=== PATIENT | female | born 1995 | race Caucasian/White ===

== ENCOUNTER 2016-12-08 21:53 | Emergency (ER) | payer BC ==
[~2016-12-08] VITALS: Ht 152.4 cm; Wt 59.0 kg
[2016-12-08 22:02] VITALS: BP 140/90; PULSE 80; RESP 18; TEMP 97.2; O2SAT 98
--- NOTE | 2016-12-08 22:06 | NUR ---
Patient to ER bed 8 to gown for evaluation. Side rails up. Report given to Natalia VINES.
--- NOTE | 2016-12-08 22:15 | NUR ---
pt in bed 8 with c/o 'allergic rxn" , no hives observed. Dr Cochran aware.
--- NOTE | 2016-12-08 22:29 | NUR ---
ER at bedside examining patient.
[2016-12-08] MEDS ORDERED: DIPHENHYDRAMINE HCL 50 MG CAPSULE PO ONE (22:45)
--- NOTE | 2016-12-08 22:47 | NUR ---
Patient given verbal discharge instructions and verbalizes understanding. ER MD discussed with patient the results and treatment provided. Given copies of tests performed in ER. Patient in stable condition. ID arm band removed. Rx of benadryl given. Patient educated on pain management and to follow up with PMD. Pain Scale 0/10. Opportunity for questions provided and answered. Pt left without d/c instructions.
[2016-12-08 22:55] VITALS: BP 132/78; PULSE 78; RESP 18; TEMP 97.2; O2SAT 98
== END 2016-12-08 22:47 | disposition home or self-care (01) ==
LOC: SED 21:53
DX: T78.1XXA Other adverse food reactions, not elsewhere classified, initial encounter (principal); R11.0 Nausea; R51 Headache; R22.0 Localized swelling, mass and lump, head; F41.9 Anxiety disorder, unspecified; X58.XXXA Exposure to other specified factors, initial encounter
CPT/HCPCS: 99282

== ENCOUNTER 2017-07-03 18:21 | Emergency (ER) | payer BC ==
[~2017-07-03] VITALS: Ht 152.4 cm; Wt 63.5 kg
[2017-07-03 18:45] VITALS: BP_SYST 146
--- NOTE | 2017-07-03 19:00 | NUR ---
TANMAY schuster LASER TECHNICIAN at bedside examining patient.
[2017-07-03] MEDS ORDERED: NACL 0.9% 1,000 ML IV ONE (19:15)
[2017-07-03] MEDS ORDERED: MORPHINE 4 MG/ML INJ. SYRINGE IVP ONE (19:15)
[2017-07-03] MEDS ORDERED: DIPHENHYDRAMINE INJ 50 MG/ML VIAL IVP ONE (19:15)
--- NOTE | 2017-07-03 19:25 | NUR ---
pt laying in bed. with mom at bedside. Pt awake alert oriented x 4. Pt stated that thew up back to back four times. IV was initiatd by claudia VINES. on the left FA 22g. Pt denied SOB. will continue to monitor
[2017-07-03 19:33] LABS: BASOPHILS # (AUTO) 0.2 K/uL (0.0-0.2); EOSINOPHILS # (AUTO) 0.1 K/uL (0.0-0.4); EOSINOPHILS % (AUTO) 0.6 % (0.0-4.0); HEMATOCRIT 38.4 % (36-48); HEMOGLOBIN 12.9 g/dL (12.0-16.0); LYMPHOCYTES # (AUTO) 2.1 K/uL (1.0-5.5); LYMPHOCYTES % (AUTO) 12.2 % (20.5-51.5); MEAN CORPUSCULAR HEMOGLOBIN 30 pg (27-31); MEAN CORPUSCULAR HGB CONC 34 % (32-36); MEAN CORPUSCULAR VOLUME 89 fL (79.0-98.0); MONOCYTES # (AUTO) 0.8 K/uL (0.0-1.0); MONOCYTES % (AUTO) 4.7 % (1.7-9.3); NEUTROPHILS # (AUTO) 13.9 K/uL (1.8-7.7); NEUTROPHILS % (AUTO) 81.5 % (40.0-70.0); PLATELET COUNT (AUTO) 232 K/uL (130-430); RED CELL DISTRIBUTION WIDTH 12.4 % (9.0-15.0); WHITE BLOOD COUNT (AUTO) 17.1 K/uL (4.8-10.8)
[2017-07-03 19:37] LABS: BILIRUBIN,URINE NEGATIVE (NEGATIVE); BLOOD, URINE NEGATIVE (NEGATIVE); CLARITY/URINE CLOUDY (CLEAR); COLOR,URINE YELLOW (YELLOW); GLUCOSE,URINE NEGATIVE (NEGATIVE); KETONES,URINE TRACE (NEGATIVE); LEUKOCYTE ESTERASE ,URINE NEGATIVE (NEGATIVE); NITRITE, URINE NEGATIVE (NEGATIVE); PROTEIN URINE NEGATIVE (NEGATIVE); UROBILINOGEN,URINE 0.2 (0.2-1.0)
[2017-07-03 20:13] LABS: BACTERIA,URINE MODERATE /HPF (None Seen); RBC,URINE NONE SEEN /HPF (0-3); WBC,URINE 0-3 /HPF (0-3)
[2017-07-03 20:14] LABS: COARSE GRANULAR CASTS,URINE 0-10 /LPF (None Seen); MUCUS,URINE None Seen /LPF (None Seen); URINE AMORPHOUS PHOSPHATES 3+ /HPF (None Seen)
[2017-07-03] MEDS ORDERED: cefTRIAXone 2 GM VIAL ONE (20:25)
[2017-07-03] MEDS ORDERED: KETOROLAC TROMETHAMINE 30 MG VIAL IVP ONE (20:30)
--- NOTE | 2017-07-03 20:30 | NUR ---
ER jarrell Gayle SOIL CHEMIST spoke to patient and mother reagrding plan of are. verbalized understanding.
[2017-07-03 20:45] LABS: CALCIUM 8.9 mg/dL (8.4-11.0); CREATININE 0.54 mg/dL (0.55-1.30); POTASSIUM 3.6 mmol/L (3.5-5.1)
[2017-07-03 20:49] LABS: ALBUMIN 3.7 g/dL (3.4-4.8); TOTAL BILIRUBIN 0.3 mg/dL (0.0-1.0)
[2017-07-03] MEDS ORDERED: MAG HYDROX/AL HYDROX/SIMETH 30 ML, LIDOCAINE VISCOUS 2% 15ML (PO) 10 ML, BELLADONNA ALK... PO ONE ×3 (21:15)
[2017-07-03] MEDS ORDERED: HYDROmorphone 1 MG INJ. 1 MG/ML AMPUL IVP ONE (21:15)
[2017-07-03 22:05] VITALS: BP_SYST 124
--- NOTE | 2017-07-03 22:05 | NUR ---
Patient and her mother given written and verbal discharge instructions and verbalizes understanding. ER MD discussed with patient the results and treatment provided. Patient in stable condition. ID arm band removed. IV catheter removed intact and dressing applied, no active bleeding. Rx of bentyl and omeprazole given. Patient educated on pain management and to follow up with PMD. Pain Scale 0/10. Opportunity for questions provided and answered.
== END 2017-07-03 22:05 | disposition home or self-care (01) ==
LOC: SED 18:21
DX: R10.13 Epigastric pain (principal); R11.2 Nausea with vomiting, unspecified; D72.829 Elevated white blood cell count, unspecified; R03.0 Elevated blood-pressure reading, without diagnosis of hypertension; F41.9 Anxiety disorder, unspecified
CPT/HCPCS: 36415; 76700; 80053; 81000; 81025; 83690; 85025; 87040; 87086; 96361; 96365; 96375; 99285; J0696; J1170; J1200; J2001; J2270; J7030; J7060

== ENCOUNTER 2017-11-19 12:58 | Inpatient (IN) | payer BC ==
[~2017-11-19] VITALS: Ht 152.4 cm; Wt 61.7 kg
[2017-11-19 12:58] VITALS: BP_SYST 143
--- NOTE | 2017-11-19 12:58 | NUR ---
BROUGHT BACK TO BED #4 VIA WHEELCHAIR, PLACED IN BED AND TRIAGED. REPORT GIVEN TO VIKAS
[2017-11-19 13:00] VITALS: BP_SYST 117
[2017-11-19 14:12] LABS: BASOPHILS # (AUTO) 0.1 K/uL (0.0-0.2); BASOPHILS % (AUTO) 0.4 % (0.0-2.0); EOSINOPHILS % (AUTO) 0.1 % (0.0-4.0); HEMOGLOBIN 13.7 g/dL (12.0-16.0); LYMPHOCYTES # (AUTO) 1.7 K/uL (1.0-5.5); LYMPHOCYTES % (AUTO) 11.5 % (20.5-51.5); MEAN CORPUSCULAR HEMOGLOBIN 30 pg (27-31); MEAN CORPUSCULAR HGB CONC 33 % (32-36); MEAN CORPUSCULAR VOLUME 89 fL (79.0-98.0); MONOCYTES # (AUTO) 0.5 K/uL (0.0-1.0); MONOCYTES % (AUTO) 3.4 % (1.7-9.3); NEUTROPHILS # (AUTO) 12.1 K/uL (1.8-7.7); NEUTROPHILS % (AUTO) 84.6 % (40.0-70.0); PLATELET COUNT (AUTO) 222 K/uL (130-430); RED CELL DISTRIBUTION WIDTH 12.2 % (9.0-15.0); WHITE BLOOD COUNT (AUTO) 14.4 K/uL (4.8-10.8)
[2017-11-19 14:31] LABS: CALCIUM 9.7 mg/dL (8.4-11.0)
[2017-11-19 14:32] LABS: CREATININE 0.57 mg/dL (0.55-1.30)
[2017-11-19 14:33] LABS: PROTHROMBIN TIME 10.4 SECS (9.5-12.5)
[2017-11-19 14:39] LABS: TOTAL BILIRUBIN 0.5 mg/dL (0.0-1.0)
[2017-11-19 14:40] LABS: ALBUMIN 4.6 g/dL (3.4-4.8)
--- NOTE | 2017-11-19 14:53 | NUR ---
Pt placed in bed 8 to gown for examination.
--- NOTE | 2017-11-19 14:53 | NUR ---
ER HONG Gayle at bedside examining patient.
--- NOTE | 2017-11-19 14:55 | NUR ---
Pt complains of having abdominal pain to lower right quadrant that radiates across lower abdomen and to lower back. Pt states she had sudden onset of pain at 5am this morning. Pt states any movement would cause pain. Pt reports she had vomited this morning and had a fever. Pt AAO x 4 and ambulatory. No other injuries/complaints per patient or noted.
[2017-11-19 15:20] LABS: BILIRUBIN,URINE NEGATIVE (NEGATIVE); CLARITY/URINE CLEAR (CLEAR); GLUCOSE,URINE NEGATIVE (NEGATIVE); KETONES,URINE NEGATIVE (NEGATIVE); LEUKOCYTE ESTERASE ,URINE NEGATIVE (NEGATIVE); NITRITE, URINE NEGATIVE (NEGATIVE); PROTEIN URINE NEGATIVE (NEGATIVE); UROBILINOGEN,URINE 0.2 (0.2-1.0)
[2017-11-19 15:38] LABS: BLOOD, URINE TRACE (NEGATIVE); COLOR,URINE STRAW (YELLOW)
[2017-11-19 15:42] LABS: BACTERIA,URINE FEW /HPF (None Seen); MUCUS,URINE None Seen /LPF (None Seen); RBC,URINE 0-3 /HPF (0-3); WBC,URINE NONE SEEN /HPF (0-3)
[2017-11-19] MEDS ORDERED: ONDANSETRON HCL 4 MG/2 ML VIAL IVP ONE (15:45)
[2017-11-19] MEDS ORDERED: cefTRIAXone 1 GM in D5W 50 ML IV ONE (15:45)
[2017-11-19] MEDS ORDERED: cefTRIAXone 1 GM VIAL ONE (15:54)
--- NOTE | 2017-11-19 15:59 | NUR ---
# 22 gauge angiocath placed to left forearm. Use of asceptic technique. Opsite placed over site. Blood return noted. Blood for lab drawn from site. Flushed with 10 cc of normal saline. No evidence of infiltration noted. Patient tolerated well.
--- NOTE | 2017-11-19 16:10 | NUR ---
Patient ambulated to radiology, accompanied by clinical lab technologist.
--- NOTE | 2017-11-19 16:16 | NUR ---
Pt returned from radiology in stable condition.
[2017-11-19] MEDS ORDERED: ACETAMINOPHEN 325 MG TABLET PO ONE (16:30)
--- NOTE | 2017-11-19 16:55 | NUR ---
ER Dr. Shahid at bedside explaining results to patient.
--- NOTE | 2017-11-19 17:02 | NUR ---
Medication was given, pt tolerated well. No adverse reaction, will continue to monitor.
--- NOTE | 2017-11-19 17:14 | NUR ---
Attempted to gather pt's list of medications for med rec but pt unable to remember names of meds nor does she have a list of them. Pt states she is taking an antibiotic for uti.
[2017-11-19] MEDS ORDERED: ACETAMINOPHEN/CODEINE 300 MG-30 MG TABLET PO PRN (18:00)
[2017-11-19] MEDS ORDERED: MORPHINE 4 MG/ML INJ. SYRINGE IVP PRN (18:00)
[2017-11-19] MEDS ORDERED: D5LR 500 ML IV ONE (18:00)
--- NOTE | 2017-11-19 18:14 | NUR ---
Patient will be admitted to care of Dr. Carlson. Admitted to Med Surg unit. Will go to room 124 B. Belongings list completed. Summary report printed. Report will be given at bedside.
--- NOTE | 2017-11-19 18:15 | NUR ---
ADMISSION NOTE Received patient from ER via henri, received report from GRACIE VINES. Patient admitted with diagnosis of ABDOMINAL PAIN/APPENDICITIS. Patient oriented to hospital routine, call light, toileting and safety-patient verbalized understanding.
[2017-11-19 18:23] VITALS: BP_SYST 114
--- NOTE | 2017-11-19 18:45 | NUR ---
Yusef Finn Dr[address] Dr., Atar, dialed [phone], s/w Miko. Addendum: 11/19/17 at 2304 by Marilyn López [facility] [place] I misspelled the name of the doctor, it should be Clotilde Bird.
[2017-11-19] MEDS ORDERED: D5LR 1,000 ML IV SCH (19:15)
[2017-11-19] MEDS ORDERED: ALBUTEROL SULFATE 0.083% 2.5 MG/3 ML VIAL.NEB INH PRN (19:30)
[2017-11-19] MEDS ORDERED: MORPHINE 2 MG/ML INJ. SYRINGE IVP PRN (19:30)
[2017-11-19] MEDS ORDERED: ACETAMINOPHEN 325 MG TABLET PO PRN (19:30)
[2017-11-19] MEDS ORDERED: ONDANSETRON HCL 4 MG/2 ML VIAL IVP PRN (19:30)
--- NOTE | 2017-11-19 19:45 | NUR ---
ROUNDS PATIENT IN BED, WATCHING TV, VITALS STABLE, DENIES ANY PAIN AND DISCOMFORT AT THIS TIME. ASSESSMENT DONE AND DOCUMENTED. SEE FLOWSHEET. NEEDS ATTENDED TO. SAFETY AND FALL PRECAUTION MEASURES IN PLACED. BED IN LOW AND LOCKED POSITION. CALL LIGHT PLACED WITHIN REACH.
[2017-11-19 20:00] VITALS: BP_SYST 123
[2017-11-19 20:24] VITALS: BP_SYST 114
[2017-11-19] MEDS ORDERED: PIPERACILLIN/TAZOBACTAM 3.375 GM/VIAL (ZOSYN) IV ONE (21:10)
[2017-11-19] MEDS: PIPERACILLIN/TAZO 3.375/DEX-IS 50 ML IV SCH (21:30)
[2017-11-20 00:15] VITALS: BP_SYST 107
--- NOTE | 2017-11-20 00:15 | NUR ---
PATIENT RESTING: Patient resting quietly. No acute distress noted. Vital signs within normal range.
--- NOTE | 2017-11-20 02:15 | NUR ---
ROUNDS PATIENT ASLEEP, VITALS STABLE, NO SIGNS OF ANY PAIN AND DISCOMFORT NOTED. WILL CONTINUE TO MONITOR
--- NOTE | 2017-11-20 04:00 | NUR ---
PATIENT RESTING: Patient resting quietly. No acute distress noted. Vital signs within normal range.
[2017-11-20] MEDS: PIPERACILLIN/TAZO 3.375/DEX-IS 50 ML IV SCH ×3 (05:12→17:27)
[2017-11-20] MEDS: NACL 0.9% 1,000 ML IV SCH ×4 (05:13→19:16)
[2017-11-20 06:44] LABS: BASOPHILS % (AUTO) 0.4 % (0.0-2.0); EOSINOPHILS # (AUTO) 0.1 K/uL (0.0-0.4); EOSINOPHILS % (AUTO) 1.6 % (0.0-4.0); HEMATOCRIT 37.4 % (36-48); HEMOGLOBIN 12.3 g/dL (12.0-16.0); LYMPHOCYTES # (AUTO) 2.2 K/uL (1.0-5.5); LYMPHOCYTES % (AUTO) 28.9 % (20.5-51.5); MEAN CORPUSCULAR HEMOGLOBIN 30 pg (27-31); MEAN CORPUSCULAR HGB CONC 33 % (32-36); MEAN CORPUSCULAR VOLUME 91 fL (79.0-98.0); MONOCYTES # (AUTO) 0.5 K/uL (0.0-1.0); MONOCYTES % (AUTO) 7.1 % (1.7-9.3); NEUTROPHILS # (AUTO) 4.7 K/uL (1.8-7.7); PLATELET COUNT (AUTO) 185 K/uL (130-430); RED CELL DISTRIBUTION WIDTH 12.5 % (9.0-15.0); WHITE BLOOD COUNT (AUTO) 7.5 K/uL (4.8-10.8)
--- NOTE | 2017-11-20 06:46 | NUR ---
CLOSING NOTES PATIENT AWAKE, VITALS STABLE, DENIES ANY PAIN AND THIS TIME. ALL NEEDS ATTENDED TO. SAFETY MEASURES MAINTAINED. BED IN LOW AND LOCKED POSITION. CALL LIGHT PLACED WITHIN REACH.
[2017-11-20 06:55] LABS: ALBUMIN 3.7 g/dL (3.4-4.8); CALCIUM 9.1 mg/dL (8.4-11.0); CREATININE 0.58 mg/dL (0.55-1.30); POTASSIUM 3.6 mmol/L (3.5-5.1); TOTAL BILIRUBIN 0.5 mg/dL (0.0-1.0)
[2017-11-20 08:00] VITALS: BP_SYST 122
--- NOTE | 2017-11-20 08:00 | NUR ---
INITIAL NOTE RECEIVED REPORT AND PATIENT FROM PROCESS IMPROVEMENT ENGINEER NURSE. PATIENT IN BED WITH BOYFRIEND AT BEDSIDE. PATIENT IS SLEEPING, RESPONDS EASILY TO STIMULI AND VOICE. NO DISTRESS NOTED, DENIES ANY PAIN AT THIS TIME. CALL LIGHT ON HAND, WILL CONTINUE TO MONITOR.
--- NOTE | 2017-11-20 08:47 | NUR ---
DR. SALGADO AT BEDSIDE DR. SALGADO MADE ROUNDS AND TALKED TO THE PATIENT.
--- NOTE | 2017-11-20 09:05 | NUR ---
DR. KENT AT BEDSIDE DR. KENT MADE ROUNDS AND TALKED TO THE PATIENT, UPDATE ON CARE WAS GIVEN, NEW ORDER OF US TO THE ABDOMEN/PELVIS WAS ORDERED. PATIENT AND BOYFRIEND ARE AWARE.
--- NOTE | 2017-11-20 09:35 | NUR ---
EXPERIMENTAL OUTBOARD MOTORS MECHANIC FOR US PATIENT IS EXPERIMENTAL OUTBOARD MOTORS MECHANIC FOR US OF ABDOMEN/PELVIS VIA WHEEL CHAIR. PATIENT IS AWAKE, ALERT, VS STABLE.
--- NOTE | 2017-11-20 10:28 | NUR ---
CAME BACK FROM US PATIENT CAME BACK FROM US OF THE ABDOMEN/PELVIS. PATIENT DENIES ANY PAIN AT THIS TIME.
--- NOTE | 2017-11-20 11:55 | NUR ---
CALLED DR. KENT CALLED AND TALKED TO DR. KENT REGARDING US OF THE ABDOMEN/PELVIS RESULT. MD CLEARED THE PATIENT FOR DISCHARGE, FOLLOW UP IN 1WEEK, MAY ADVANCE DIET TO REGULAR. WILL NOTIFY PATIENT AND FAMILY.
[2017-11-20 12:00] VITALS: BP_SYST 103
--- NOTE | 2017-11-20 13:27 | NUR ---
Consult called: for Gunner Zayas, regarding abdominal pain, ordered by Dr. Garvey, spoke with Alyssa.
--- NOTE | 2017-11-20 13:28 | NUR ---
Surgery consult called: nurse speaking on phone with Dr. Ventura.
[2017-11-20] MEDS: ONDANSETRON HCL 4 MG/2 ML VIAL IVP PRN ×2 (13:39→19:48)
--- NOTE | 2017-11-20 13:39 | NUR ---
NAUSEA PATIENT COMPLAINS OF NAUSEA AND MILD ABDOMINAL PAIN WITH INTENSITY OF 3, PRN NAUSEA AND VOMITING AND PAIN MEDICATION GIVEN. WILL CONTINUE TO MONITOR.
--- NOTE | 2017-11-20 14:38 | NUR ---
Page: Called Dr. Wilson office to inform them that Dr. Garvey wants patient seen stat.
--- NOTE | 2017-11-20 15:25 | NUR ---
DR OLIVERA PAGED FOR 3RD TIME PER DR JASSO REQUEST FOR URGENT CONSULT, SPOKE WITH CANT HOOKER STATING MD WAS AWARE AND WOULD BE COMING IN TO SEE PATIENT SOON HE WAS DONE WITH THE PATIENTS IN HIS OFFICE.
--- NOTE | 2017-11-20 16:05 | NUR ---
ROUNDS PATIENT IN BED WITH FAMILY AT BEDSIDE. PATIENT SLEEPING, RESPONDS EASILY TO STIMULI OR VOICE. DENIES ANY PAIN OR NAUSEA OR VOMITING AT THIS TIME. VS STABLE. CALL LIGHT ON HAND WILL CONTINUE TO MONITOR.
[2017-11-20 16:30] VITALS: BP_SYST 95
--- NOTE | 2017-11-20 17:35 | NUR ---
DR. SALGADO AT BEDSIDE DR. SALGADO IS DOING ROUNDS AND TALKING TO THE PATIENT AND FAMILY. UPDATE ON THE PLAN OF CARE WAS GIVEN.
--- NOTE | 2017-11-20 18:16 | NUR ---
CLOSING NOTE PATIENT IS COMPLAINING OF HEADACHE WITH INTENSITY OF 3/10, PRN PAIN MEDICATION GIVEN ORDERED. WILL REASSESS. PATIENT IN BED WITH FAMILY AT BEDSIDE. IV SITE ON LEFT FOREARM WITH 22GAUGE. PATENT WITH MEDICATION INFUSING VIA PUMP. BED LOCKED AND ON LOWEST POSITION. CALL LIGHT WITHIN REACH, WILL GIVE REPORT TO UPCOMING BUSINESS OFFICE DIRECTOR.
--- NOTE | 2017-11-20 19:40 | NUR ---
OPENING NOTE RECEIVED REPORT AND PATIENT FROM DAY SHIFT NURSE. PATIENT IN BED, ALERT, VERBALLY RESPONSIVE. SAFETY PRECAUTIONS MAINTAINED, BED WHEELS LOCKED, ON LOWEST POSITION, BED ALARM ON, SIDE RAILS UP X 3, CALL LIGHT ON HAND, WILL CONTINUE TO MONITOR.
--- NOTE | 2017-11-20 19:49 | NUR ---
PAGED I PAGED [phone] DR[address] HODGES SHANK RANDER I SPOKE WITH MARLA HODGES CALLED BACK @ [phone]
[2017-11-20 19:50] VITALS: BP_SYST 105
--- NOTE | 2017-11-20 20:00 | NUR ---
RN ROUNDS PATIENT COMPLAINED OF NAUSEA, NO VOMITING. MEDICATED WITH ZOFRAN FOR NAUSEA, DENIES ANY OTHER PAIN AT THIS TIME, WILL REASSESS PATIENT SHORTLY.
--- NOTE | 2017-11-20 20:10 | NUR ---
MD PAGED DR. SALGADO, DR. HODGES DIRECTOR OF GUIDANCE IN [employer], UPDATED HIM ON PATIENT'S STATUS, PATIENT WAS CLEARED WITH DR. OLIVERA AND SURGEONS, DR. HODGES STATES WAIT UNTIL THE MORNING FOR PATIENT TO BE DISCHARGED BY DR SALGADO IN THE AM SINCE HE DOESNT KNOW THE PATIENT'S CASE. PATIENT UPDATED ON PLAN OF CARE, VERBALIZED UNDERSTANDING.
--- NOTE | 2017-11-20 20:30 | NUR ---
RN ROUNDS PATIENT IN BED, AOX4, PT VERBALLY RESPONSIVE. SIGNIFICANT OTHER AT BEDSIDE. RESPIRATIONS EVEN AND UNLABORED. VITAL SIGNS WNL. NO SOB, NO DISTRESS NOTED AT THIS TIME. IV PATENT AND INTACT. PT REQUESTING ZOFRAN. DR. ORTIZ AND ORDERED ZOFRAN FOR N/V. ZOFRAN ADMINISTERED ORDERED, PT TOLERATED WELL. SAFETY PRECAUTIONS MAINTAINED, BED WHEELS LOCKED, ON LOWEST POSITION, BED ALARM ON, SIDE RAILS UP X 3, CALL LIGHT ON HAND, WILL CONTINUE TO MONITOR.
--- NOTE | 2017-11-20 21:57 | NUR ---
MD DR. OLIVERA PAGERonnie, CALLED BACK, NEW ORDERS FOR PELVIC ULTRASOUND ADRIÁN AM. PATIENT UPDATED ON PLAN OF CARE.
--- NOTE | 2017-11-20 23:07 | NUR ---
IV PATIENT'S IV TO LEFT FOREARM INFILTRATED, REMOVED AND COVERED WITH GAUZE. ATTEMPTED TO PLACE ANOTHER IV LINE ON PATIENT'S LEFT FOREARM, PATIENT STATED SHE WAS IN A LOT OF PAIN FROM NEW IV SITE. IV LINE REMOVED. REFUSED TO HAVE ANOTHER IV LINE AT THIS TIME, WILL FOLLOW UP WITH PATIENT SHORTLY.
[2017-11-21 00:34] VITALS: BP_SYST 106
--- NOTE | 2017-11-21 00:35 | NUR ---
RN ROUNDS PATIENT IN BED, AOX4, PT VERBALLY RESPONSIVE. SIGNIFICANT OTHER AT BEDSIDE. RESPIRATIONS EVEN AND UNLABORED. VITAL SIGNS WNL. NO SOB, NO DISTRESS NOTED AT THIS TIME. PT REFUSED IV. NO IV ACCESS AT THIS TIME. SAFETY PRECAUTIONS MAINTAINED, BED WHEELS LOCKED, ON LOWEST POSITION, BED ALARM ON, SIDE RAILS UP X 3, CALL LIGHT ON HAND, WILL CONTINUE TO MONITOR.
--- NOTE | 2017-11-21 02:09 | NUR ---
RN ROUNDS PATIENT RESTING IN BED WITH EYES CLOSED. SIGNIFICANT OTHER AT BEDSIDE. RESPIRATIONS EVEN AND UNLABORED. NO SOB, NO DISTRESS NOTED AT THIS TIME. SAFETY PRECAUTIONS MAINTAINED, BED WHEELS LOCKED, ON LOWEST POSITION, BED ALARM ON, SIDE RAILS UP X 3, CALL LIGHT ON HAND, WILL CONTINUE TO MONITOR.
[2017-11-21] MEDS: NACL 0.9% 1,000 ML IV SCH (03:16)
--- NOTE | 2017-11-21 04:15 | NUR ---
RN ROUNDS PATIENT IN BED RESTING WITH EYES CLOSED. SIGNIFICANT OTHER AT BEDSIDE. RESPIRATIONS EVEN AND UNLABORED. NO SOB, NO DISTRESS NOTED AT THIS TIME. SAFETY PRECAUTIONS MAINTAINED, BED WHEELS LOCKED, ON LOWEST POSITION, BED ALARM ON, SIDE RAILS UP X 3, CALL LIGHT ON HAND, WILL CONTINUE TO MONITOR.
[2017-11-21] MEDS: PIPERACILLIN/TAZO 3.375/DEX-IS 50 ML IV SCH ×2 (06:00)
--- NOTE | 2017-11-21 06:24 | NUR ---
CLOSING NOTE PT WILL BE ENDORSED TO DAY SHIFT. PATIENT IN BED , RESTING WITH EYES CLOSED. SO AT THE BEDSIDE. RESPIRATIONS EVEN AND UNLABORED.NO SOB, NO DISTRESS NOTED THROUGHOUT THE SHIFT. IV PATENT AND INTACT. SAFETY PRECAUTIONS MAINTAINED, BED WHEELS LOCKED, ON LOWEST POSITION, BED ALARM ON, SIDE RAILS UP X 3, CALL LIGHT ON HAND. ALL NEEDS MET DURING SHIFT.
--- NOTE | 2017-11-21 07:38 | NUR ---
OPENING NOTE PATIENT RESTING COMFORTABLY. SIGNIFICANT OTHER AT BEDSIDE. PATIENT HAS NO NOTABLE SIGNS OF DISTRESS AT THIS TIME. PATIENTS BED IN LOWEST POSITION, CALL LIGHT WITHIN REACH, AND SIDE RAILS ARE UP FOR SAFETY MEASURES. PATIENT HAS NO IV ACCESS, MD AWARE. IF PATIENT NEEDS TO STAY WE WILL NEED TO OBTAIN ACCESS, IF OB SAYS PATIENT CAN GO HOME, I WILL CALL DR. PEMBERTON, NO NEED FOR IV ACCESS. WILL CONTINUE TO FOLLOW UP. PATIENT TO HAVE ULTRASOUND. CONTACTED SHORT PIECE HANDLER, STATES PATIENT HAD U/S COMPLETED YESTERDAY 11/20. WILL CALL DR. OLIVERA WITH RESULTS.
--- NOTE | 2017-11-21 08:02 | NUR ---
JAROD PAGED: DR. OLIVERA PAGED THROUGH ANSWERING SERVICE, AWAITING RETURN CALL FOR RESULTS, AND ORDERS.
[2017-11-21 09:03] VITALS: BP_SYST 115
--- NOTE | 2017-11-21 10:15 | NUR ---
NOTE SPOKE WITH DR. OLIVERA, HE STATES THAT HE DID WANT THE PELVIC ULTRASOUND DUE TO LIMITED VIEW PER RADIOLOGIST. PATIENT WOULD LIKE TO GO HOME, MD WAS INFORMED. OKAY FOR HER TO FOLLOW UP OUTPATIENT FOR ULTRASOUND TO RULE OUT PCOS. PAGED DR. PEMBERTON REGARDING DISCHARGE. SPOKE WITH HIM REGARDING DR. MARTINEZ SEEING PATIENT AND STATING THERE WAS NO EVIDENCE OF APPENDICITIS, SIGNED OFF. SPOKE WITH HIM REGARDING WHAT MD OLIVERA STATED ON PHONE. OKAY TO DISCHARGE HOME FOLLOW UP WITH TRIAGE RN/DR. OLIVERA OUTPATIENT IN 1 WEEK. DISCHARGE ORDER PLACED BY RN.
[2017-11-21 10:22] VITALS: BP_SYST 115
--- NOTE | 2017-11-21 10:49 | NUR ---
HCP/BETHANY/RICK: Faxed Home order to [phone]. Filed fax confirmation in binder.
--- NOTE | 2017-11-21 11:20 | NUR ---
D/C Patient Patient given medication reconciliation form and D/C instructions. Exit Care provided. Patient verbalized understanding. MD discussed with patient the results and treatment provided. Ambulatory with steady gait for discharge to home. Patient in stable condition, ID band removed. IV catheter removed, intact and dressing applied, no active bleeding. No Rx given. Patient educated on pain management. All belongings sent with patient.
== END 2017-11-21 11:20 | disposition home or self-care (01) | DRG 761 ==
LOC: SED 12:58 → SMU 17:58
PROVIDERS: ADMIT Internal Medicine; ATTEND Internal Medicine
DX: N83.202 Unspecified ovarian cyst, left side (principal); N28.1 Cyst of kidney, acquired; F41.9 Anxiety disorder, unspecified; K21.9 Gastro-esophageal reflux disease without esophagitis; N83.201 Unspecified ovarian cyst, right side; R31.9 Hematuria, unspecified
CPT/HCPCS: 36415; 76700-TC; 76856-TC; 80048; 80053; 81000-TC; 81025; 83605; 83690-TC; 84702-TC; 85025; 85610-TC; 85730-TC; 86140; 87040-TC; 94760; 96365; 96375; 99285; J0696; J2405; J2543; J7030; J7040; J7060; J7120